=== PATIENT | male | born 1950 | race Caucasian/White ===

== ENCOUNTER 2020-05-03 18:02 | Emergency (ER) | payer OTHER ==
[2020-05-03 18:09] VITALS: BP 133/82; PULSE 83; BMI 25.0
[2020-05-03 18:36] VITALS: TEMP 97.9
[2020-05-03] MEDS ORDERED: ALPRAZolam 0.25 MG TABLET PO ONE (18:50)
[2020-05-03] MEDS ORDERED: ALPRAZolam 0.25 MG TABLET ONE (18:54)
== END 2020-05-03 19:05 | disposition home or self-care (01) ==
LOC: JERFT 18:02
DX: F41.9 Anxiety disorder, unspecified (principal)
CPT/HCPCS: 93005; 93010; 99283-25